=== PATIENT | female | born 1955 | race Caucasian/White ===

== ENCOUNTER → 2024-07-12 09:24 | Outpatient (REF) | payer OTHER, SELFPAY | LOC: HWWDC 09:24 | PROVIDERS: ATTENDING PHYSICIAN Nurse Practitioner | DX: Z12.31 Encounter for screening mammogram for malignant neoplasm of breast (principal) | CPT/HCPCS: 77063; 77067 ==

== ENCOUNTER → 2024-10-13 09:20 | Outpatient (REF) | payer OTHER, SELFPAY | LOC: WDC 09:20 | PROVIDERS: ATTENDING PHYSICIAN Nurse Practitioner | DX: R92.8 Other abnormal and inconclusive findings on diagnostic imaging of breast (principal) | CPT/HCPCS: 76642; 77062; 77066 ==

== ENCOUNTER → 2024-12-26 10:39 | Outpatient (REF) | payer OTHER, SELFPAY | LOC: HWRAD 10:39 | PROVIDERS: ATTENDING PHYSICIAN Chiropractor; FAMILY PHYSICIAN Nurse Practitioner | DX: M99.01 Segmental and somatic dysfunction of cervical region (principal); M99.02 Segmental and somatic dysfunction of thoracic region; M62.40 Contracture of muscle, unspecified site; M99.03 Segmental and somatic dysfunction of lumbar region; M53.2X7 Spinal instabilities, lumbosacral region | CPT/HCPCS: 72050; 72072; 72110 ==

== ENCOUNTER → 2025-01-24 14:00 | Outpatient (REF) | payer OTHER, SELFPAY | LOC: RAD 14:00 | PROVIDERS: ATTENDING PHYSICIAN Nurse Practitioner | DX: I70.0 Atherosclerosis of aorta (principal) | CPT/HCPCS: 75571; 76770; 93880 ==